=== PATIENT | male | born 1985 | race Caucasian/White ===

== ENCOUNTER 2020-10-02 09:27 | Day surgery (SDC) | payer OTHER ==
[2020-09-25 16:14] LABS: BASOPHILS # (AUTO) 0.1 X10'3 (0-0.2); BASOPHILS % (AUTO) 1.2 % (0-1); EOSINOPHILS # (AUTO) 0.3 X10'3 (0-0.9); EOSINOPHILS % (AUTO) 4.8 % (0-6); LYMPHOCYTES # (AUTO) 1.8 X10'3 (1.1-4.8); LYMPHOCYTES % (AUTO) 31.7 % (21-51); MEAN CORPUSCULAR HGB CONC 33.3 g/dL (33.0-36.5); MEAN PLATELET VOLUME 9.5 FL (7.4-10.4); MONOCYTES # (AUTO) 0.4 X10'3 (0-0.9); MONOCYTES % (AUTO) 6.7 % (2-12); NEUTROPHILS # (AUTO) 3.2 X10'3 (1.8-7.7); NEUTROPHILS % (AUTO) 55.6 % (42-75); PRE OP HEMATOCRIT 45.4 % (42.0-52.0); PRE OP HEMOGLOBIN 15.1 g/dL (14.0-17.9); PRE OP PLATELET COUNT 187 X10'3 (140-440); RED BLOOD COUNT 5.22 X10'6 (4.70-6.10); RED CELL DISTRIBUTION WIDTH 13.4 % (11.5-14.5)
[2020-09-25 16:25] LABS: ALBUMIN 4.5 G/DL (3.4-5.0); ALBUMIN/GLOBULIN RATIO 1.4 (1.1-1.5); ALKALINE PHOSPHATASE 65 IU/L (46-116); BLOOD UREA NITROGEN 32 MG/DL (7-18); BUN/CREATININE RATIO 30.2 (5.4-32.0); CALCIUM 8.9 MG/DL (8.5-10.1); CHLORIDE 105 MMOL/L (99-107); CREATININE 1.06 MG/DL (0.60-1.10); PRE OP ALT 55 U/L (30-65); PRE OP ANION GAP 8 (8-16); PRE OP AST 23 U/L (10-37); PRE OP BILIRUB, TOTAL 0.3 MG/DL (0.0-1.0); PRE OP GLUCOSE 97 MG/DL (70-104); PRE OP POTASSIUM 4.6 MMOL/L (3.4-5.1); PRE OP SODIUM 141 MMOL/L (135-145); TOTAL CARBON DIOXIDE 28.5 MMOL/L (24-32); TOTAL PROTEIN 7.8 G/DL (6.4-8.2); eGFR 79 ML/MIN
[2020-10-02] VITALS (22 sets, daily range): BP systolic 90–153; BP diastolic 39–94
[~2020-10-02] VITALS: Ht 172.7 cm; Wt 87.8 kg
[~2020-10-02 09:27] MED LIST: NO HOME MEDS; cefazolin/dext.iso 2gm/100ml IV ONE; famotidine 20mg tablet PO ONE; ringers solution, lacted 1,000 ML IV SCH
[2020-10-02] MEDS ORDERED: midazolam 1 mg/ML 2ml injection ONE ×2 (11:42→13:50)
[2020-10-02] MEDS ORDERED: fentaNYL/PF 50MCG/1 ML 2ML syringe ONE (11:42)
[2020-10-02] MEDS ORDERED: propofol inj 20 ML IV ONE ×2 (11:42→15:38)
[2020-10-02] MEDS ORDERED: LIDOcaine 2% (20mg/ml) 5ml vial ONE ×2 (11:43→15:38)
[2020-10-02] MEDS ORDERED: rocuronium 10mg/ml inj IV ONE ×3 (11:43→15:38)
[2020-10-02] MEDS ORDERED: ondansetron/PF 4mg/2ml inj ONE ×2 (12:29→13:48)
[2020-10-02] MEDS ORDERED: BUPIVAcaine/PF 2.5 mg/ml (0.25%) 30ml vial ONE (13:30)
[2020-10-02] MEDS ORDERED: sevoflurane 250ml liquid IH ONE (13:48)
[2020-10-02] MEDS ORDERED: dexamethasone sod phosphate 10mg/ml inj ONE (13:48)
[2020-10-02] MEDS ORDERED: meperidine/PF 25mg/ml syringe IV PRN ×2 (13:50)
[2020-10-02] MEDS ORDERED: proCHLORperazine 10 MG/2 ml inj IV PRN (13:50)
[2020-10-02] MEDS ORDERED: morphine 2 MG/ML inj. syringe IV PRN (13:50)
[2020-10-02] MEDS ORDERED: ondansetron/PF 4mg/2ml inj IV PRN (13:50)
[2020-10-02] MEDS ORDERED: fentaNYL /PF 50mcg/ml 5ml ampule ONE (13:50)
[2020-10-02] MEDS ORDERED: acetaminophen 1,000mg/100ml IV 100 ML IV PRN (13:50)
[2020-10-02] MEDS ORDERED: ringers solution, lacted 1,000 ML IV SCH (13:50)
[2020-10-02] MEDS ORDERED: morphine 4 MG/ML inj SYRINge IV PRN (13:50)
[2020-10-02] MEDS ORDERED: hydrALAZINE 20mg/ml inj. IV PRN (13:50)
[2020-10-02] MEDS ORDERED: labetalol 20mg/4ml (5mg/ml) syringe IV PRN (13:50)
[2020-10-02] MEDS ORDERED: LIDOcaine 2% 5ml jelly ONE (13:55)
[2020-10-02] MEDS ORDERED: glycopyrrolate 0.2mg/ml inj ONE ×2 (15:24→16:05)
[2020-10-02] MEDS ORDERED: neostigmine methylsulfate 1 MG/ML 10ml vial ONE ×2 (15:24→16:05)
--- NOTE | 2020-10-02 16:09 | NUR ---
ASSUME CARE PT AWAKE ALERT VSS NO DISTRESS. LAP SITES TO ABD INTACT WITH SCANT AMT DRAINAGE 2X2 APPLIED, IV TO LEFT HAND 20G PATIENT WITH IVF INFUSING WITHOUT DIFFICULTY. CONT TO MONITOR. Addendum: 10/02/20 at 1651 by Jenny Noble RN Amended: Links added.
[2020-10-02] MEDS: meperidine/PF 25mg/ml syringe IV PRN ×2 (16:18→16:37)
--- NOTE | 2020-10-02 17:09 | NUR ---
PT MORE AWAKE VSS NO DISTRESS STEVEN PO'S TAKES FEELS BETTER, DC INSTR GIVEN NO ?'S INSTR ON NEED TO VOID PRIOR TO DC HOME. Addendum: 10/02/20 at 1712 by Jenny Noble RN Amended: Links added.
[2020-10-02] MEDS ORDERED: HYDROcodone/acetaminophen 10/325mg tab PO ONE (17:30)
--- NOTE | 2020-10-02 17:39 | NUR ---
PT STATES HAVING ABD PAIN WANTS TO GO HOME REQUEST PAIN PILL PRIOR STATING [address] HOME. NORCO 10MG PO ORDER ONE PILL GIVEN WITH WATER AND CRACKERS Addendum: 10/02/20 at 1740 by Jenny Noble RN Amended: Links added.
--- NOTE | 2020-10-02 19:19 | NUR ---
PACU DISCHARGE CRITERIA MET, REPORT GIVEN TO FLOOR. DENIES PAIN OR DISCOMFORT. PT IS STABLE AND ADEQUATELY RECOVERED FROM ANESTHESIA. PT HAS STABLE AIRWAY PATENCY, RESPIRATORY FUNCTION TO INCLUDE RESPIRATORY RATE AND O2 SAT. HEART RATE, BLOOD PRESSURE STABLE AND HYDRATION ADEQUATE. MENTAL STATUS IS APPROPRIATE. PAIN AND NAUSEA CONTROLLED. REFER TO PACU SPREADSHEET FOR VITAL SIGNS. PATIENT HAD TWO SUCCESSFUL STREAMS OF URINE. BLADDER SCAN AFTER FIRST VOID WAS 110. VOIDED A SECOND TIME AND PATIENT SENT HOME. DECLINES DESIRE FOR ANY NARCOTICS AT THIS TIME. OUT TO PERSONAL VEHICLE WHERE HIS TOOK HIM TO THE PHARMACY AND THEN TO HOME. CGA TO GET INTO VEHICLE. SECURED IN FRONT PASSENGER SEAT. Addendum: 10/02/20 at 1932 by Rakesh Gatica RN, RN Amended: Links added.
== END 2020-10-02 19:19 | disposition home or self-care (01) ==
LOC: PAS 09:27
PROVIDERS: ATTEND Surgery
DX: K40.20 Bilateral inguinal hernia, without obstruction or gangrene, not specified as recurrent (principal); Z72.89 Other problems related to lifestyle; Z20.822 Contact with and (suspected) exposure to COVID-19; Z79.899 Other long term (current) drug therapy
CPT/HCPCS: 36415; 49650; 80053; 82948; 85025; C1758; C1781; J0131; J1100; J2001; J2175; J2250; J2405; J2704; J2710; J3010; J3490; S2900; U0003; U0005; Z7506; Z7508; Z7512; A4215; A4618; J7120